=== PATIENT | male | born 1940 | race Caucasian/White ===

== ENCOUNTER 2023-02-23 19:24 | Emergency (ER) | payer MEDICARE, OTHER, SELFPAY ==
[2023-02-23] VITALS (12 sets, daily range): BP systolic 136–181; BP diastolic 65–87; PULSE 65–90; RESP 13–23; TEMP 37; O2SAT 94–100; BMI 22.1
[2023-02-23] MEDS: ONDANSETRON 4 MG/2 ML INJ IV (20:57)
[2023-02-23 20:59] LABS: Add Manual Diff / Slide Review NO; Basophils Absolute Auto 0 /uL (0-100); Basophils Percent Auto 0.4 % (0-2); Eosinophils Absolute Auto 100 /uL (0-450); Hematocrit 42.8 % (41-53); Hemoglobin 14.6 g/dL (13.5-17.5); Lymphocytes Absolute Auto 1000 /uL (1100-4500); Lymphocytes Percent Auto 9.1 % (25-40); Mean Corpuscular HGB Conc 34.1 % (30-36); Mean Corpuscular Hemoglobin 32.7 PG (26-34); Mean Corpuscular Volume 95.9 fL (80-100); Monocytes Absolute Auto 600 /uL (0-900); Monocytes Percent Auto 5.7 % (3-14); Neutrophils Absolute Auto 9000 /uL (1500-7000); Neutrophils Percent Auto 83.8 % (50-75); Platelet Count 193 X10^3/uL (150-400); Red Blood Cell Count 4.46 X10^6/uL (4.5-5.9); White Blood Cell Count 10.8 X10^3/uL (4.5-11.0)
[2023-02-23 21:13] LABS: Alanine Aminotransferase 27 IU/L (<50); Albumin 4.6 g/dL (3.5-5.0); Albumin Globulin Ratio 1.4 (1.0-2.8); Alkaline Phosphatase 71 U/L (38-126); Aspartate Aminotransferase 28 IU/L (17-59); BUN Creatinine Ratio 12.4 (6-22); Bilirubin Total 0.6 mg/dL (0.2-1.3); Blood Urea Nitrogen 12 mg/dL (9-20); Calcium 9.7 mg/dL (8.4-10.2); Carbon Dioxide 26 mmol/L (22-32); Chloride 101 mmol/L (98-107); Estimated Glomerular Filt Rate > 60 mL/min (>60); Globulin 3.4 g/dL (1.7-4.1); Glucose 146 mg/dL (80-110); HEMOLYSIS < 15 (0-50); Lipase 49 U/L (23-300); Potassium 4.2 mmol/L (3.4-5.1)
[2023-02-23 21:40] LABS: Sodium 137 mmol/L (137-145)
--- NOTE | 2023-02-23 21:42 | ED_ITS ---
HPI - Abdominal Pain General Chief Complaint: Abdominal Pain Stated Complaint: SUDDEN EXTREAME ONSET LOWER ABD PAIN Time Seen by Provider: 02/23/23 21:39 Source: patient Mode of arrival: Ambulatory History of Present Illness HPI narrative: Patient is an 82-year-old male without significant past medical history although he has had a remote history of kidney stones presents today with sudden onset right lower quadrant pain. He felt very nauseous the pain was quite severe. However it has settled down. He was in his normal state of health today they were out shopping they were about to go to dinner when he was unable to continue being at the restaurant because the pain was so bad. He denies any flank pain no chest pain. Related Data Home Medications Medication Instructions Recorded Confirmed [GERMAN HERBS] ##0 10/08/11 Previous Rx's Medication Instructions Recorded metronidazole 0.75 % topical cream 0.75 % topical HS ##45 10/08/11 (MetroCream) hydrocodone 5 mg-acetaminophen 325 1 tab PO Q6H PRN pain #10 tabs 02/24/23 mg tablet nitrofurantoin 100 mg PO Q12H 7 days #14 caps 02/24/23 monohydrate/macrocrystals 100 mg capsule (Macrobid) ondansetron 4 mg disintegrating 4 mg PO Q8H PRN nausea and 02/24/23 tablet vomiting #10 tabs tamsulosin 0.4 mg capsule (Flomax) 0.4 mg PO BEDTIME #10 caps 02/24/23 Allergies Allergy/AdvReac Type Severity Reaction Status Date / Time From [facility] 100 Allergy Intermediate hives Uncoded 07/27/17 11:57 Exam Initial Vital Signs Initial Vital Signs: Vital Signs Temperature 98.6 F 02/23/23 19:30 Pulse Rate 65 02/23/23 19:30 Respiratory Rate 16 02/23/23 19:30 Blood Pressure 136/65 02/23/23 19:30 Pulse Oximetry 98 02/23/23 19:30 Oxygen Delivery Method Room Air 02/23/23 19:30 GENERAL: Alert pleasant 82-year-old male and in no acute distress. HEENT: Head atraumatic,EOMI, pupils reactive, face symmetric, moist mucous membranes CARDIOVASCULAR: Regular rate and rhythm without murmurs, rubs or gallops. RESPIRATORY: Breath sounds equal bilaterally, no wheezes rales or rhonchi. ABDOMEN: Soft, nontender. Normoactive bowel sounds all 4 quadrants. No guarding or rebound. : No CVA tenderness EXTREMITIES: Normal range of motion, no clubbing or edema. Neurovascularly intact NEUROLOGICAL: Alert and oriented x4.Normal gait and speech. Cranial nerves II through XII grossly intact. SKIN: Warm, dry, no laceration, no petechiae, no rashes or lesions. Course Orders Ordered: ED Orders 02/23/23 20:35 EKG-12 Lead Stat 02/23/23 20:54 Complete Blood Count AUTO DIFF Stat Comprehensive Metabolic Panel Stat Lipase Stat 02/23/23 21:48 CT kidney ureter bladder (KUB) Stat 02/24/23 00:00 Urine Culture Stat Urine Microscopic Stat Discontinued Medications Hydrocodone Bitart/Acetaminophen (Hydrocodone/Acet 5/325 Prepack) 1 bottle MISC SEEINSTR ONE Stop: 02/24/23 00:23 Last Admin: 02/24/23 00:34 Dose: 1 bottle Documented By: CECILIO Sodium Chloride (Normal Saline 0.9%) 1,000 mls @ 1,000 mls/hr IV BOLUS ONE Stop: 02/24/23 00:13 Last Infusion: 02/24/23 00:12 Dose: Infused Documented By: Admin: 02/23/23 23:20 Dose: 1,000 mls/hr Documented By: JT Ketorolac Tromethamine (Ketorolac 30 Mg/Ml Vial) 15 mg IV NOW ONE Stop: 02/23/23 21:49 Last Admin: 02/23/23 22:29 Dose: 15 mg Documented By: CECILIO Nitrofurantoin Macrocrystals (Nitrofurantoin Er 100 Mg Capsule) 100 mg PO NOW ONE Stop: 02/24/23 00:23 Last Admin: 02/24/23 00:33 Dose: 100 mg Documented By: CECILIO Ondansetron HCl (Ondansetron 4 Mg/2 Ml Inj) 4 mg IV NOW PRN PRN Reason: Nausea And Vomiting Last Admin: 02/23/23 20:57 Dose: 4 mg Documented By: CECILIO Ondansetron HCl (Ondansetron 4 Mg Odt) 4 mg PO NOW PRN PRN Reason: Nausea And Vomiting Ondansetron HCl (Ondansetron 4 Mg Odt Prepack) 1 bottle MISC SEEINSTR ONE Stop: 02/24/23 00:23 Last Admin: 02/24/23 00:34 Dose: 1 bottle Documented By: SB Vital Signs Vital signs: Vital Signs - 8 hr 02/23/23 19:30 02/23/23 20:39 02/23/23 20:41 Temperature 98.6 F Pulse Rate 65 84 Respiratory Rate 16 Blood Pressure 136/65 181/87 H Pulse Oximetry 98 100 Oxygen Delivery Method Room Air 02/23/23 20:41 02/23/23 20:49 02/23/23 20:49 Temperature Pulse Rate 80 75 Respiratory Rate 17 23 Blood Pressure 181/81 H Pulse Oximetry 100 100 Oxygen Delivery Method 02/23/23 21:00 02/23/23 21:00 02/23/23 21:30 Temperature Pulse Rate 74 Respiratory Rate 18 Blood Pressure 171/84 H 164/76 H Pulse Oximetry 98 Oxygen Delivery Method 02/23/23 21:30 02/23/23 22:02 02/23/23 22:30 Temperature Pulse Rate 70 90 84 Respiratory Rate 16 20 21 Blood Pressure Pulse Oximetry 99 99 98 Oxygen Delivery Method Room Air 02/23/23 22:37 02/23/23 22:37 02/23/23 23:00 Temperature Pulse Rate 81 83 Respiratory Rate 19 18 Blood Pressure 167/81 H Pulse Oximetry 100 95 Oxygen Delivery Method 02/23/23 23:30 02/23/23 23:59 02/23/23 23:59 Temperature Pulse Rate 80 84 Respiratory Rate 13 21 Blood Pressure 137/87 Pulse Oximetry 100 94 Oxygen Delivery Method 02/24/23 00:00 02/24/23 00:01 02/24/23 00:01 Temperature Pulse Rate 81 Respiratory Rate 22 Blood Pressure 168/82 H Pulse Oximetry 97 100 Oxygen Delivery Method Room Air 02/24/23 00:30 02/24/23 00:30 Temperature Pulse Rate 77 Respiratory Rate 18 Blood Pressure 134/71 Pulse Oximetry 98 Oxygen Delivery Method Room Air MDM - Abdominal Pain Lab Data 02/23/23 20:54 02/23/23 20:54 Labs: Lab Results 02/23/23 02/24/23 Range/Units 20:54 00:00 WBC 10.8 (4.5-11.0) X10^3/uL RBC 4.46 L (4.5-5.9) X10^6/uL Hgb 14.6 (13.5-17.5) g/dL Hct 42.8 (41-53) % MCV 95.9 (80-100) fL MCH 32.7 (26-34) PG MCHC 34.1 (30-36) % RDW 13.0 (11.6-14.8) % Plt Count 193 (150-400) X10^3/uL Neut % (Auto) 83.8 H (50-75) % Lymph % (Auto) 9.1 L (25-40) % Evangeline % (Auto) 5.7 (3-14) % Eos % (Auto) 1.0 L (2-4) % Baso % (Auto) 0.4 (0-2) % Neut # (Auto) 9000 H (0352-6462) /uL Lymph # (Auto) 1000 L (9922-4914) /uL Evangeline # (Auto) 600 (0-900) /uL Eos # (Auto) 100 (0-450) /uL Baso # (Auto) 0 (0-100) /uL Sodium 137 (137-145) mmol/L Potassium 4.2 (3.4-5.1) mmol/L Chloride 101 (98-107) mmol/L Carbon Dioxide 26 (22-32) mmol/L BUN 12 (9-20) mg/dL Creatinine 0.97 (0.66-1.25) mg/dL Estimated GFR > 60 (>60) mL/min BUN/Creatinine Ratio 12.4 (6-22) Glucose 146 H (80-110) mg/dL Calcium 9.7 (8.4-10.2) mg/dL Total Bilirubin 0.6 (0.2-1.3) mg/dL AST 28 (17-59) IU/L ALT 27 (<50) IU/L Alkaline Phosphatase 71 (38-126) U/L Total Protein 8.0 (6.3-8.2) g/dL Albumin 4.6 (3.5-5.0) g/dL Globulin 3.4 (1.7-4.1) g/dL Albumin/Globulin Ratio 1.4 (1.0-2.8) Lipase 49 (23-300) U/L Urine RBC 30-100/hpf H (0-5/HPF) Urine WBC 0-1/hpf (0-5/HPF) Ur Squamous Epith Cells None seen (0-5/HPF) Urine Bacteria Few (2-10) H (None) Micro UA Comment Low volume (<10ml) Point of care testing: Urine Dip Bedside Urine Glucose Negative Bedside Urine Bilirubin - Negative Bedside Urine Ketone + 15 Urine Specific Amado 1.025 Bedside Urine Occult Blood +++ Bedside Urine pH 6.0 Bedside Urine Protein ++ 100 Bedside Urine Urobilinogen - Negative Bedside Urine Leukocytes ++ [address] scan - abdomen/pelvis: Radiologist's Impression: PROCEDURE: CT KIDNEY URETER BLADDER (KUB) INDICATIONS: right flank pain TECHNIQUE: Axial sections were acquired from the lung bases to the pubic symphysis. Coronal and sagittal reformats were performed. For radiation dose reduction, the following was used: automated exposure control, adjustment of mA and/or kV according to patient size. COMPARISON: [facility], CT, CHEST ABDOMEN PELVIS WITH CONTRAST, 12/28/2006, 10:36. FINDINGS: Image quality: Excellent. Lung bases: Bibasilar scarring/atelectasis is seen. 3 mm subsolid nodule is noted in posterior lateral right lower lobe near right lung base. Series 3, image 9 Heart: No significant findings. URINARY: Right Kidney: There is moderate right-sided hydronephrosis and mild perinephric fat stranding. 6 x 3 mm stone is noted in right UPJ and measures approximately 425 Hounsfield unit in density series 2, image 49. Right Ureter: No hydroureter. Left Kidney: Nonobstructing stones are noted scattered in left kidney measures up to 7 mm in size and 171 Hounsfield unit in density series 2, image 36. No left-sided hydronephrosis. Left Ureter: No hydroureter. Bladder: Normal wall thickness. No stones. ABDOMEN: Liver: Unremarkable. Gallbladder: Unremarkable. Biliary ducts: Unremarkable. Pancreas: Unremarkable. Spleen: A small splenule is seen. Spleen is normal in size. Adrenal Glands: Unremarkable. Stomach and Bowel: There is no bowel obstruction. No abnormal bowel wall thickening or mesenteric fat stranding. Mild sigmoid diverticulosis is seen without CT evidence of acute diverticulitis. No abscess collection. Peritoneum: No abnormal intraperitoneal fluid. No free air. Ventral Wall: No hernia. Abdominal Nodes: No enlarged retroperitoneal or mesenteric lymph nodes. Vessels: Aorta and inferior vena cava are normal in size. PELVIS: Pelvic Organs: Unremarkable. Pelvic Nodes: Unremarkable. Miscellaneous: Small bilateral inguinal hernia are seen containing fat and short segments of colonic loops. Bones: No suspicious bony lesions. No acute vertebral body compression fracture. 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 IMPRESSION: 1. 6 x 3 mm proximal right UPJ stone causing [id number] right-sided hydronephrosis. 2. Nonobstructing stones in left kidney as above. No left-sided hydronephrosis. No hydroureter. No abnormality is seen in urinary bladder. 3. No bowel obstruction or abnormal bowel wall thickening. Sigmoid diverticulosis without CT evidence of acute diverticulitis. No abscess collection. No free fluid or free air. 4. Small bilateral inguinal hernia containing short segments of colon loops. No signs of incarceration. 5. Incidentally noted of a 3 mm subsolid nodule in right lower lobe. Follow-up CT chest study can be done in 12 months for evaluation of stability. Dictated by: Connor Rangel M.D. on 02/23/2023 at 22:09 MDM Narrative Medical decision making narrative: Patient well-appearing 82-year-old male who presents with sudden onset of abdominal pain. Pain controlled with Toradol and Zofran. CT confirms a 6 x 3 mm UPJ stone with [id number] right hydronephrosis. No evidence of renal dysfunction. He does have leukocytes in his urine but no evidence of sepsis he is afebrile. Will treat him for UTI. Encouraged him to follow up with Urology, may require lithotripsy and/or stent. Given pain medications to go home. Labs: Reviewed no leukocytosis anemia, no OSMAR electrolyte abnormality urinalysis does show leukocytes and bacteria CT: Image reviewed Discharge Plan Departure Patient Disposition: Home Clinical Impression: Calculus of kidney Instructions: DI for Kidney Stones Activity Restrictions/Additional Instructions: *You have been diagnosed with kidney stone right side *What to do: You have a 6 x 3 kidney stone. I do strongly recommend that you follow-up with Urology. *Continue to take medications as directed--> Sent to [facility] Macrobid 100 mg twice a day for 7 days Flomax 0.4 mg once at night Motrin 600 mg every 8 hours for acap-zx-ibksrwtx pain Zofran 4 mg every 8 hours if needed for nausea or vomiting [place] 1 tablet every 6 hours if needed for severe pain *Follow up with your primary care provider in 2-3 days or call [phone] Dr. Ramirez or Apoorva in the morning to schedule a follow-up appointment *Return to ER if you should have increasing pain fever not tolerating fluids or any new, worsening or concerning symptoms CONTROLLED SUBSTANCE DISCHARGE (Narcotoic/benzodiazepine/Flexeril/Phenergan) 1. You have been prescribed narcotic medications, it does have acetaminophen/Tylenol/paracetamol in it, DO NOT TAKE MORE THAN 4,00mg in 24 hours of Tylenol. TRAMADOL DOES NOT CONTAIN TYLENOL 2. Please understand that we cannot provide further refills of narcotics, benzodiazepines or controlled substances through the ED and her pain management will need to be through your provider. 3. While on these medications you cannot drive or operate heavy machinery. 4. You cannot sign legal documents or perform any duties such as this. 5. As long as you're taking opiate pain medications he should also be taking a stool softener such as Colace, Dulcolax, MiraLAX or prune juice, to help avoid constipation. Prescriptions: New hydrocodone-acetaminophen 5-325 mg tablet 1 tab PO Q6H PRN (Reason: pain) Qty: 10 0RF tamsulosin [Flomax] 0.4 mg capsule 0.4 mg PO BEDTIME Qty: 10 0RF ondansetron 4 mg tablet,disintegrating 4 mg PO Q8H PRN (Reason: nausea and vomiting) Qty: 10 0RF nitrofurantoin monohyd/m-cryst [Macrobid] 100 mg capsule 100 mg PO Q12H 7 Days Qty: 14 0RF Rx Instructions: must administer with a meal/food No Action [GERMAN HERBS] Qty: 0 metronidazole [MetroCream] 0.75 % cream 0.75 % Topical HS Qty: 45 5RF Referrals: Deonte Hernandez MD [Primary Care Provider] - Stand Alone Forms: Patient Portal/API
--- NOTE | 2023-02-23 21:48 | DI.CT.S_ITS ---
PROCEDURE: CT KIDNEY URETER BLADDER (KUB) INDICATIONS: right flank pain TECHNIQUE: Axial sections were acquired from the lung bases to the pubic symphysis. Coronal and sagittal reformats were performed. For radiation dose reduction, the following was used: automated exposure control, adjustment of mA and/or kV according to patient size. COMPARISON: [facility], CT, CHEST ABDOMEN PELVIS WITH CONTRAST, 12/28/2006, 10:36. FINDINGS: Image quality: Excellent. Lung bases: Bibasilar scarring/atelectasis is seen. 3 mm subsolid nodule is noted in posterior lateral right lower lobe near right lung base. Series 3, image 9 Heart: No significant findings. URINARY: Right Kidney: There is moderate right-sided hydronephrosis and mild perinephric fat stranding. 6 x 3 mm stone is noted in right UPJ and measures approximately 425 Hounsfield unit in density series 2, image 49. Right Ureter: No hydroureter. Left Kidney: Nonobstructing stones are noted scattered in left kidney measures up to 7 mm in size and 171 Hounsfield unit in density series 2, image 36. No left-sided hydronephrosis. Left Ureter: No hydroureter. Bladder: Normal wall thickness. No stones. ABDOMEN: Liver: Unremarkable. Gallbladder: Unremarkable. Biliary ducts: Unremarkable. Pancreas: Unremarkable. Spleen: A small splenule is seen. Spleen is normal in size. Adrenal Glands: Unremarkable. Stomach and Bowel: There is no bowel obstruction. No abnormal bowel wall thickening or mesenteric fat stranding. Mild sigmoid diverticulosis is seen without CT evidence of acute diverticulitis. No abscess collection. Peritoneum: No abnormal intraperitoneal fluid. No free air. Ventral Wall: No hernia. Abdominal Nodes: No enlarged retroperitoneal or mesenteric lymph nodes. Vessels: Aorta and inferior vena cava are normal in size. PELVIS: Pelvic Organs: Unremarkable. Pelvic Nodes: Unremarkable. Miscellaneous: Small bilateral inguinal hernia are seen containing fat and short segments of colonic loops. Bones: No suspicious bony lesions. No acute vertebral body compression fracture. 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 IMPRESSION: 1. 6 x 3 mm proximal right UPJ stone causing [id number] right-sided hydronephrosis. 2. Nonobstructing stones in left kidney as above. No left-sided hydronephrosis. No hydroureter. No abnormality is seen in urinary bladder. 3. No bowel obstruction or abnormal bowel wall thickening. Sigmoid diverticulosis without CT evidence of acute diverticulitis. No abscess collection. No free fluid or free air. 4. Small bilateral inguinal hernia containing short segments of colon loops. No signs of incarceration. 5. Incidentally noted of a 3 mm subsolid nodule in right lower lobe. Follow-up CT chest study can be done in 12 months for evaluation of stability. Dictated by: Connor Ragnel M.D. on 02/23/2023 at 22:09 Approved by: Connor Rangel M.D. on 02/23/2023 at 22:15
[2023-02-23] MEDS: KETOROLAC 30 MG/ML VIAL 15 MG IV (22:29)
[2023-02-23] MEDS: SODIUM CHLORIDE 0.9% 1,000 ML 1000 ML IV (23:20)
[2023-02-24] VITALS: O2SAT 97
[2023-02-24 00:01] VITALS: BP 168/82; PULSE 81; RESP 22; O2SAT 100
[2023-02-24 00:17] LABS: Bacteria Urine Few (2-10); RBC Urine 30-100/HPF (0-5/HPF); Squamous Epithelial Cell Urine None Seen (0-5/HPF); WBC Urine 0-1/HPF (0-5/HPF)
[2023-02-24 00:18] LABS: Urine Comments Low Volume (<10mL)
[2023-02-24 00:30] VITALS: BP 134/71; PULSE 77; RESP 18; O2SAT 98
[2023-02-24] MEDS: NITROFURANTOIN ER 100 MG CAPSULE PO (00:33)
[2023-02-24] MEDS: HYDROCODONE/ACET 5/325 PREPACK 1 BOTTLE MISC (00:34)
[2023-02-24] MEDS: ONDANSETRON 4 MG ODT PREPACK 1 BOTTLE MISC (00:34)
== END 2023-02-24 00:51 | disposition home or self-care (01) ==
PROVIDERS: Emergency Provider Emergency Medicine; PCP Family Medicine
DX: N20.0 Calculus of kidney (principal); R10.31 Right lower quadrant pain
CPT/HCPCS: 36415; 74176; 80053; 81003; 81015; 83690; 85025; 87086; 93005; 96361; 96374; 96375; 99284; J1885; J2405